=== PATIENT | male | born 1960 | race Native Hawaiian/Other Pacific Islander ===

== ENCOUNTER 2017-09-26 18:44 | Outpatient (CLI) | payer BC | END 2017-09-26 22:07 | disposition home or self-care (01) | LOC: RAD 18:44 | DX: J18.0 Bronchopneumonia, unspecified organism (principal) ==

== ENCOUNTER 2021-06-08 09:26 | Outpatient (CLI) | payer BC, OTHER ==
[~2021-06-08] VITALS: Ht 185.4 cm; Wt 72.6 kg
== END 2021-06-08 18:56 | disposition home or self-care (01) ==
LOC: INF 09:26
PROVIDERS: ATTEND Family Medicine
DX: U07.1 COVID-19 (principal); Z23 Encounter for immunization
CPT/HCPCS: 96365; Q0247